=== PATIENT | female | born 1935 | race African-American/Black ===

== ENCOUNTER 2017-11-03 08:14 | Outpatient (CLI) | payer MEDICARE ==
[2017-11-03 08:37] LABS: ADD MAN DIFF? NO
[2017-11-03 08:46] LABS: BASO # 0.1 x10^3/uL (0.0-0.2); BASO % 1 % (0-3); EOS # 0.2 x10^3/uL (0.0-0.7); EOS % 2 % (0-3); HEMATOCRIT 41.4 % (36.0-47.0); HEMOGLOBIN 13.7 g/dL (12.0-15.5); LYMPH # 1.8 x10^3/uL (1.0-4.8); LYMPH % 24 % (24-48); MEAN CORPUSCULAR HEMOGLOBIN 29 pg (25-35); MEAN CORPUSCULAR HGB CONC 33 g/dL (31-37); MEAN CORPUSCULAR VOLUME 87 fL (79-100); MONO # 0.5 x10^3/uL (0.0-1.1); MONO % 7 % (0-9); NEUT # 5.2 x10^3uL (1.8-7.7); NEUT % 66 % (31-73); PLATELET COUNT 86 x10^3/uL (140-400); RED BLOOD COUNT 4.77 x10^6/uL (3.50-5.40); RED CELL DISTRIBUTION WIDTH 14.1 % (11.5-14.5); WHITE BLOOD COUNT 7.8 x10^3/uL (4.0-11.0)
[2017-11-03] MEDS ORDERED: LIDOCAINE WITH 8.4% SOD BICARB 3 ML DISP.SYRIN. ×2 (09:27→09:33)
[2017-11-03] MEDS ORDERED: fentaNYL PF VIAL 100 MCG/2 ML VIAL (09:28)
[2017-11-03] MEDS ORDERED: MIDAZOLAM HCL/PF 2 MG/2 ML VIAL. (09:28)
[2017-11-03] MEDS ORDERED: FLUMAZENIL 0.5 MG/5 ML VIAL. IV (09:34)
[2017-11-03] MEDS ORDERED: NALOXONE 0.4 MG/ML VIAL. (09:34)
[2017-11-03] MEDS: fentaNYL PF VIAL 100 MCG/2 ML VIAL IV (10:08)
[2017-11-03] MEDS: LIDOCAINE WITH 8.4% SOD BICARB 3 ML DISP.SYRIN. IJ (10:08)
[2017-11-03] MEDS: MIDAZOLAM HCL/PF 2 MG/2 ML VIAL. IV (10:09)
== END 2017-11-03 11:40 | disposition home or self-care (01) ==
LOC: INTRAD 08:14
DX: D69.6 Thrombocytopenia, unspecified (principal); E78.00 Pure hypercholesterolemia, unspecified; I10 Essential (primary) hypertension; J45.909 Unspecified asthma, uncomplicated; K21.9 Gastro-esophageal reflux disease without esophagitis; Z88.8 Allergy status to other drugs, medicaments and biological substances; Z98.42 Cataract extraction status, left eye; Z98.41 Cataract extraction status, right eye; Z90.49 Acquired absence of other specified parts of digestive tract; Z98.890 Other specified postprocedural states; Z90.710 Acquired absence of both cervix and uterus; Z86.2 Personal history of diseases of the blood and blood-forming organs and certain disorders involving the immune mechanism; Z85.828 Personal history of other malignant neoplasm of skin; Z88.2 Allergy status to sulfonamides; Z88.1 Allergy status to other antibiotic agents
CPT/HCPCS: 36415; 38222; 77012; 85025; 85610; 88184; 88185; 88237; 99152; J2250; J3010

== ENCOUNTER → 2018-12-20 | Outpatient (CLI) | payer MEDICARE ==
[2017-11-03 11:00] VITALS: BP 103/63
[~2018-12-20] MED LIST: ACET500T68 PO; ALBU2.5V8 IH; CHOL100013 PO; CICL15CR2 TP; CRESTOR10 MG PO; DICL100T PO; DOCU100C28 PO; FLUT9.9S NS; HYDR-2145 PO; LORA10TA68 PO; TRAV5DRO EACHEYE; VERA180T PO
--- NOTE | 2018-12-20 15:31 | RAD ---
EXAM: Chest, 2 views. HISTORY: Cough. Asthma. COMPARISON: None. FINDINGS: 2 views of the chest are obtained. There is no infiltrate, pleural effusion or pneumothorax. There is bilateral basilar atelectasis. The heart is normal in size. IMPRESSION: No acute pulmonary finding. Electronically signed by: Mini Lizama MD (12/20/2018 3:28 PM) [facility]
== END | disposition home or self-care (01) ==
LOC: RAD 14:15
PROVIDERS: ATTEND Internal Medicine Pulmonary Disease
DX: J98.11 Atelectasis (principal); J45.909 Unspecified asthma, uncomplicated
CPT/HCPCS: 71046

== ENCOUNTER → 2019-06-09 | Outpatient (CLI) | payer MEDICARE ==
[2017-11-03 11:00] VITALS: BP 103/63
--- NOTE | 2019-06-09 14:41 | RAD ---
Examination: CT CHEST WO CONTRAST History: COPD Comparison/Correlation: 12/17/2018 two-view chest x-ray exam Findings: Axial images of the chest were obtained without contrast. Sagittal and coronal reformatted images were provided. Calcified granulomas present at the posterior aspect of the left upper lung field near the pleura. Right lateral midthoracic calcifications, small in size. No suspicious pulmonary nodule or infiltrate. No pleural or pericardial effusion. No enlarged thoracic lymph nodes. Thoracic aortic morphology is grossly normal. A small hiatal hernia is present. Minimal linear atelectasis at the right lung base is noted. The tracheobronchial tree is unremarkable. No definite or significant emphysematous involvement of the lung chung. Severe T12-L1 disc space narrowing is present with mild retrolisthesis of T12. The right renal superior pole, there is a 1.7 cm diameter smoothly marginated lesion which has Hounsfield units of 51. Left adrenal 2.6 cm diameter heterogeneous lesion with fat components as to be expected of a benign adenoma.. Impression: Minimal linear atelectasis. No infiltrate. No definite emphysematous finding. Small hiatal hernia. Indeterminate hypodense right renal lesion. Further evaluation with contrast-enhanced CT according to renal protocol to assess for possibility of a mass lesion is recommended if stability of this finding is unknown. Left adrenal adenoma. PQRS Compliance Statement: One or more of the following individualized dose reduction techniques were utilized for this examination: 1. Automated exposure control 2. Adjustment of the mA and/or kV according to patient size 3. Use of iterative reconstruction technique Electronically signed by: Ermias Leija MD (06/09/2019 2:38 PM) [facility]
== END | disposition home or self-care (01) ==
LOC: CT 10:31
PROVIDERS: ATTEND Internal Medicine Pulmonary Disease
DX: J44.9 Chronic obstructive pulmonary disease, unspecified (principal); D35.02 Benign neoplasm of left adrenal gland; K44.9 Diaphragmatic hernia without obstruction or gangrene; J98.11 Atelectasis
CPT/HCPCS: 71250